=== PATIENT | male | born 1985 | race Caucasian/White ===

== ENCOUNTER → 2024-04-01 10:50 | Outpatient (REF) | payer BC, SELFPAY ==
[2024-04-01 11:31] LABS: % Basophils 0.7 % (0-2); % Eosinophils 1.7 % (0-6); % Immature Granulocytes 0.3 % (0-0.5); % Lymphocytes 26.1 % (20.5-51.1); % Monocytes 5.4 % (1.7-9.3); % Neutrophils 65.8 % (42.2-75.2); Absolute Basophils 0.1 10^3/uL (0-0.2); Absolute Eosinophils 0.1 10^3/uL (0-0.7); Absolute Lymphocytes 1.9 10^3/uL (1.2-3.4); Absolute Monocytes 0.4 10^3/uL (0.1-0.6); Absolute Neutrophils 4.8 10^3/uL (1.4-6.5); Hematocrit 48.4 % (39.0-52.0); Hemoglobin 16.3 g/dL (13.0-18.0); Mean Corp Hgb Conc. 33.7 g/dL (33.0-37.0); Mean Corpuscular Hgb 28.5 pg (27.0-31.0); Mean Corpuscular Volume 84.6 fL (80.0-94.0); Mean Platelet Volume 10.5 fL (7.4-10.4); Nucleated Red Blood Cells % 0 % (-); Platelet Count 294 10^3/uL (130-400); Red Blood Cell Count 5.72 10^6/uL (4.70-6.10); Red Cell Dist. Width 13.6 % (11.5-14.5); White Blood Cell Count 7.2 10^3/uL (4.8-10.8)
[2024-04-01 12:56] LABS: ALT (SGPT) 20 U/L (0-50); AST (SGOT) 26 U/L (17-59); Albumin 4.6 g/dl (3.5-5.0); Alkaline Phosphatase 85 U/L (38-126); Blood Urea Nitrogen 20 mg/dl (9-20); Calcium 9.9 mg/dl (8.4-10.2); Carbon Dioxide 25 mmol/L (22-30); Chloride 104 mmol/L (98-107); Glucose 83 mg/dl (70-99); HDL Cholesterol 37 mg/dl; LDL Cholesterol, Calculated 114 mg/dl; Potassium 4.3 mmol/L (3.5-5.1); Sodium 139 mmol/L (135-145); Total Bilirubin 0.5 mg/dl (0.2-1.3); Total Cholesterol 226 mg/dl (50-199); Total Protein 7.5 g/dl (6.3-8.2); Triglyceride 378 mg/dl (10-149); Very Low Density Lipoprotein 75 mg/dl (0-30); eGFR > 60.00
[2024-04-01 13:25] LABS: TSH Reflex To Free T4 2.87 uIU/ml (0.47-4.68)
== END ==
LOC: REG 10:50
PROVIDERS: ATTENDING PHYSICIAN Registered Nurse
DX: E78.5 Hyperlipidemia, unspecified (principal)
CPT/HCPCS: 36415; 80053; 80061; 84443; 85025

== ENCOUNTER → 2024-09-16 09:06 | Outpatient (REF) | payer BC, SELFPAY ==
[2024-09-16 11:02] LABS: HDL Cholesterol 33 mg/dl; LDL Cholesterol, Calculated 156 mg/dl; Total Cholesterol 232 mg/dl (50-199); Triglyceride 215 mg/dl (10-149); Very Low Density Lipoprotein 43 mg/dl (0-30)
== END ==
LOC: REG 09:06
PROVIDERS: ATTENDING PHYSICIAN Registered Nurse
DX: E78.5 Hyperlipidemia, unspecified (principal)
CPT/HCPCS: 36415; 80061

== ENCOUNTER → 2024-10-30 17:38 | Outpatient (REF) | payer BC, SELFPAY | LOC: RAD 17:38 | PROVIDERS: ATTENDING PHYSICIAN Nurse Practitioner Adult Health; FAMILY PHYSICIAN Registered Nurse | DX: M25.532 Pain in left wrist (principal); M79.642 Pain in left hand | CPT/HCPCS: 73110; 73120 ==

== ENCOUNTER 2025-03-03 09:46 | Emergency (ER) | payer BC, SELFPAY ==
[2025-03-03 09:50] VITALS: BP 100/75
--- NOTE | 2025-03-03 11:33 | ED.GENMED ---
History of Present Illness
General
Chief Complaint: Skin Surface Trauma
Source: patient
Exam Limitations: none
Time Seen by Provider: 03/03/25 10:34
Nursing documentation reviewed up to this point in time: agreed with
History of Present Illness
History of Present Illness:
Patient is a 39-year-old male who works as a teacher at [employer] and cut his left thumb on a razor blade. He is right-hand dominant. His last tetanus is under 5 years. No other complaints. No bony complaints.
Past History
Past History
ED Past Medical History: None and Psychiatric (Anxiety, depression, ADD)
ED Past Surgical History: None
Social History
Tobacco: Non-smoker
Living: with family
Employment: Employed ([employer])
Family History
Family History: Other (Noncontributory)
Review of Systems
Review of Systems
Allergies reviewed?: Yes
All Other Systems: ROS reviewed and negative except as documented in HPI and ROS
Constitutional: Reports no symptoms; Denies fever, fatigue or chills
Musculoskeletal: Reports other (laceration to left thumb )
Skin: Reports other (laceration to left thumb )
Neurological: Reports no symptoms
Hematologic/Lymphatic: Reports no symptoms
Psychiatric: Reports no symptoms
Phy Exam
General Physical Exam
General Presentation: no apparent distress
General age: appears stated age
General Skin: warm and dry
General Habitus: normal
General Mental: alert
Musculoskeletal Exam
Musculoskeletal Exam: full ROM and other (lue with strong pulses left thumb volar aspect distal phlaynx with 2 cm partial-thickness linear laceration, full flexion extension no bony tenderness or swelling no active bleeding)
Skin Exam
Skin Exam: normal color and warm/dry
Course
Orders/Labs/Results
Orders:
Orders
03/03/25 12:19
Aluminium Finger Splint Left ONCE
Vital Signs
Initial and Last Documented VS:
Initial Vital Signs
Temp Pulse Resp BP Pulse Ox
98.6 F 78 16 100/75 98
03/03/25 09:50 03/03/25 09:50 03/03/25 09:50 03/03/25 09:50 03/03/25 09:50
Last Documented Vital Signs
Temp Pulse Resp BP Pulse Ox
98.6 F 77 16 128/76 99
03/03/25 09:50 03/03/25 12:20 03/03/25 12:20 03/03/25 12:20 03/03/25 12:20
Procedures
Laceration Closure
Left Distal Volar First Finger:
Status of Wound: clean
Size of Wound in cm: 2
Description of Wound Edges: sharp
Preparation: cleaned with saline
Revision/Debridement: routine- no revision
Type of Closure: Dermabond-skin glue
MDM/Problems Addressed
Differential Diagnosis Includes:
Not limited to skin laceration
MDM/Problems Addressed:
Simple partial thickness laceration to left distal phalanx of thumb no bony tenderness no tendon involvement full flexion extension. Dermabond applied with splint for support wound care reviewed. Tetanus is up-to-date.
*Critical Care Note
Total Time (30-74mins, 75-104mins- exclusive of procedures): Not Applicable
ED Attending Note
-
Portions of this chart may have been created with voice recognition software.� Occasional wrong word or��sound alike� substitutions may have occurred due to the inherent limitations of voice recognition software.
Discharge Plan
Departure
Patient Disposition: Home (Routine Discharge)
Date of Disposition: 03/03/25
Time of Disposition: 12:19
Patient with high blood pressure during this ER visit?: No
Condition: Fair
Covid-19: Not Applicable
Discharge Problem:
Finger laceration
Instructions: Laceration Repair With Glue (DC)
Prescriptions:
No Action
bupropion HCl 75 MG tablet
PO
methylphenidate HCl [Concerta] 18 MG tablet extended release 24hr
PO DAILY
Referrals:
Rito Cotton CRNP [Family Provider] -
Activity Restrictions/Additional Instructions:
Keep wound clean and dry for 24 hours. Wear splint for support for 24 hours. After 24 hours you may lightly wet wound but do not apply antibiotic ointment to the wound. Glue will flake off on its own within 5 to 7 days.
Return if any signs infection.
Interventions
Interventions:
*Risk Screen - Suicide Last Done: 03/03/25 09:50
*General Assessment Last Done: 03/03/25 12:20
*Neglect/Abuse Screening Last Done: 03/03/25 09:50
*ED COVID-19 Vaccine History Last Done: 03/03/25 12:20
*Nursing Disposition Last Done: 03/03/25 12:50
ED-Skin Assessment Last Done: 03/03/25 12:20
Discharge Date and Time
Discharge Date/Time: 03/03/25 13:06
Print Language: TONGAN
[2025-03-03 12:20] VITALS: BP 128/76
== END 2025-03-03 13:06 | disposition home or self-care (01) ==
LOC: EMR 09:46
PROVIDERS: EMERGENCY PHYSICIAN Student in an Organized Health Care Education/Training Program; FAMILY PHYSICIAN Registered Nurse
DX: S61.012A Laceration without foreign body of left thumb without damage to nail, initial encounter (principal); W45.8XXA Other foreign body or object entering through skin, initial encounter; Y92.210 Daycare center as the place of occurrence of the external cause; Y99.0 Civilian activity done for income or pay; F41.8 Other specified anxiety disorders
CPT/HCPCS: 99282; 29130

== ENCOUNTER → 2025-03-31 11:04 | Outpatient (REF) | payer BC, SELFPAY ==
[2025-03-31 11:44] LABS: % Basophils 0.7 % (0-2); % Eosinophils 1.3 % (0-6); % Immature Granulocytes 0.6 % (0-0.5); % Lymphocytes 28.5 % (20.5-51.1); % Monocytes 6.6 % (1.7-9.3); % Neutrophils 62.3 % (42.2-75.2); Absolute Eosinophils 0.1 10^3/uL (0-0.7); Absolute Lymphocytes 1.6 10^3/uL (1.2-3.4); Absolute Monocytes 0.4 10^3/uL (0.1-0.6); Absolute Neutrophils 3.4 10^3/uL (1.4-6.5); Hematocrit 47.2 % (39.0-52.0); Hemoglobin 16.6 g/dL (13.0-18.0); Mean Corp Hgb Conc. 35.2 g/dL (33.0-37.0); Mean Corpuscular Hgb 29.4 pg (27.0-31.0); Mean Corpuscular Volume 83.5 fL (80.0-94.0); Mean Platelet Volume 10.8 fL (7.4-10.4); Nucleated Red Blood Cells % 0 % (-); Platelet Count 260 10^3/uL (130-400); Red Blood Cell Count 5.65 10^6/uL (4.70-6.10); Red Cell Dist. Width 13.4 % (11.5-14.5); White Blood Cell Count 5.4 10^3/uL (4.8-10.8)
[2025-03-31 12:31] LABS: ALT (SGPT) 25 U/L (0-50); AST (SGOT) 24 U/L (17-59); Albumin 4.8 g/dl (3.5-5.0); Alkaline Phosphatase 69 U/L (38-126); Blood Urea Nitrogen 17 mg/dl (9-20); Calcium 9.7 mg/dl (8.4-10.2); Glucose 90 mg/dl (70-99); HDL Cholesterol 36 mg/dl; LDL Cholesterol, Calculated 118 mg/dl; Total Bilirubin 0.7 mg/dl (0.2-1.3); Total Cholesterol 218 mg/dl (50-199); Total Protein 7.5 g/dl (6.3-8.2); Triglyceride 320 mg/dl (10-149); Very Low Density Lipoprotein 64 mg/dl (0-30); eGFR > 60.00
[2025-03-31 12:38] LABS: TSH Reflex To Free T4 2.07 uIU/ml (0.47-4.68)
[2025-03-31 12:57] LABS: Carbon Dioxide 23 mmol/L (22-30); Chloride 106 mmol/L (98-107); Potassium 4.5 mmol/L (3.5-5.1); Sodium 142 mmol/L (135-145)
== END ==
LOC: REG 11:04
PROVIDERS: ATTENDING PHYSICIAN Registered Nurse
DX: E78.5 Hyperlipidemia, unspecified (principal); F33.1 Major depressive disorder, recurrent, moderate
CPT/HCPCS: 36415; 80053; 80061; 84443; 85025

== ENCOUNTER → 2025-07-01 08:41 | Outpatient (REF) | payer BC, SELFPAY ==
[2025-07-01 10:00] LABS: HDL Cholesterol 37 mg/dl; LDL Cholesterol, Calculated 155 mg/dl; Very Low Density Lipoprotein 49 mg/dl (0-30)
== END ==
LOC: REG 08:41
PROVIDERS: ATTENDING PHYSICIAN Registered Nurse
DX: E78.5 Hyperlipidemia, unspecified (principal)
CPT/HCPCS: 36415; 80061

== ENCOUNTER → 2025-10-31 16:40 | Outpatient (REF) | payer BC, SELFPAY ==
[2025-10-31 17:42] LABS: Hematocrit 42.2 % (39.0-52.0); Hemoglobin 14.1 g/dL (13.0-18.0); Mean Corp Hgb Conc. 33.4 g/dL (33.0-37.0); Mean Corpuscular Volume 84.4 fL (80.0-94.0); Nucleated Red Blood Cells % 0 % (-); Platelet Count 314 10^3/uL (130-400); Red Cell Dist. Width 13.3 % (11.5-14.5)
== END ==
LOC: REG 16:40
PROVIDERS: ATTENDING PHYSICIAN Registered Nurse
DX: M79.671 Pain in right foot (principal); K64.8 Other hemorrhoids
CPT/HCPCS: 36415; 73630; 85025